=== PATIENT | female | born 1945 | race Caucasian/White ===

== ENCOUNTER 2019-05-01 09:16 | Day surgery (SDC) | payer MEDICARE, OTHER, SELFPAY ==
--- NOTE | 2019-04-30 16:45 | PM.PREOP ---
Pre-operative Note Interval Note History & Physical reviewed/Exam performed by Physician: Yes Changes to H&P: No
--- NOTE | 2019-05-01 08:11 | PM.OP.1 ---
Operative Date/Time/Diagnoses Date of procedure: 05/01/19 Time of procedure: 10:45 Procedure & Clinicians Procedure: Preoperative diagnoses: 1. Right advanced nuclear sclerotic and cortical cataract . Postoperative diagnoses: 1. Cataract removed by phacoemulsification. 2. Placement of a posterior chamber intraocular lens implant. Surgeon: Yue Argueta MD Complications: none Specimen: None Implant: [id number]+23.5 Blood loss: None Anesthesia: Retrobulbar with monitored standby. Description of procedure: Dictated by: Yue Argueta MD Post operative diagnoses: 1. Right cataract removed with use of capsular dye . 2. Placement of a posterior chamber intraocular lens. Procedure: Phacoemulsification with posterior chamber intraocular lens implant Surgeon: Yue Argueta MD Blood loss: None Anesthesia: Retrobulbar with monitored standby Description of procedure: Patient has presented with decreased vision due to cataract which is affecting activities of daily living. The patient wants surgery to improve vision. The patient was taken to the operating room and given IV sedation. A retrobulbar block consisting of 6 cc of 2% xylocaine without epinephrine mixed half and half with 0.5% Marcaine with 1 cc of hyaluronidase added is placed between the medial and lateral 1/3 of the inferior orbital rim. The eye is manually massaged for 30 sec, prepped using Betadine solution, and draped in the usual sterile fashion. Temporal approach was made, a 1 mm side-port incision was performed 90 degrees from the planned corneal wound. Phenylephrine 1.5% mixed with 1% xylocaine 0.2 cc was placed into the anterior chamber. Viscoat followed by Deyanira was then placed. A 2.6 mm clear incision with a 2.6 mm blade was placed. A 360 degree capsulorrhexis style capsulotomy was then performed with a cystitome needle on a Healon. Hydrodelineation and hydrodissection were performed. The phacoemulsification unit is introduced, and sculpting used to groove the central lens. It is then removed in chopping mode. Epi nucleus is removed with epinuclear mode and irrigation aspiration was used to remove the peripheral cortex. The posterior capsule is polished. The intraocular lens is selected, inspected, power confirmed, and placed in the posterior chamber. The pupil was constricted with Miostat. The wound was stromally hydrated and tested for leaks, there was none and was left sutureless. Vigamox 0.1 cc was placed into the anterior chamber. Kenalog 0.2 cc was placed in the superior subconjunctival space. A drop of antibiotic and was placed and the eye was patched and shielded. The patient was stable and returned to the recovery room in excellent condition. Dictated by: Yue Argueta MD Copy to: [facility] Same procedure as scheduled: Yes
[2019-05-01] MEDS: PROPARACAINE 0.5% OPHTH SOL 2 DROPS EYE-OP (10:05)
[2019-05-01] MEDS: CATARACT EYE COMPOUND (10 DROPS/SYRINGE) 3 DROPS EYE-OP (10:08)
[2019-05-01 10:13] VITALS: BP 172/79; PULSE 57; RESP 16; TEMP 37.2; O2SAT 99; BMI 26.5
--- NOTE | 2019-05-01 11:28 | SUR.OPER ---
Supine on eye stretcher, head on extension cradle secured with tape. Arms tucked at sides with blanket. Pillow under knees. Supine on eye stretcher, head on extension cradle secured with tape. Arms tucked at sides with blanket. Pillow under knees.
[2019-05-01] MEDS: CHONDROIDTIN/SOD HYALURONATE 1.05 ML SYRINGE INTRAOCULA (11:34)
[2019-05-01] MEDS: TRIAMCINOLONE 50 MG/5 ML VIAL INJ (11:35)
[2019-05-01] MEDS: HYALURONATE SODIUM 10 MG/ML SYRINGE INJ (11:35)
[2019-05-01] MEDS: PHENYLEPHRINE/LIDOCAINE VIAL (OR) 0.2 ML EYE-OP (11:36)
[2019-05-01] MEDS: MOXIFLOXACIN INJ 5 MG/ML VIAL EYE-OP (11:36)
[2019-05-01] MEDS: LIDOCAINE 2% 4 ML, BUPIVACAINE 0.5% (PF) 4 ML, HYALURONIDASE 150 UNIT INJ (11:37)
[2019-05-01] MEDS: BALANCED SALT IRRIG SOLN NO.2 500 ML, EPINEPHrine 1 MG IRR (11:38)
[2019-05-01] MEDS: ERYTHROMYCIN OPHTH 1 GM OINT 1 APPLIC EYE-RIGHT (11:45)
[2019-05-01 11:55] VITALS: BP 184/78; PULSE 64; RESP 16; TEMP 36.8; O2SAT 99
[2019-05-01 12:32] VITALS: BP 177/83; PULSE 61; RESP 15; TEMP 36.6; O2SAT 98
== END 2019-05-01 12:36 | disposition home or self-care (01) ==
LOC: OR 09:19
PROVIDERS: Family Provider Nurse Practitioner; Referring Provider Ophthalmology; Visit Provider Ophthalmology
PROC: (CPT 66984; principal; 2019-05-01 10:45)
DX: H25.811 Combined forms of age-related cataract, right eye (principal); H40.013 Open angle with borderline findings, low risk, bilateral; H35.363 Drusen (degenerative) of macula, bilateral
CPT/HCPCS: 66984; J0171; J2704; J3301; J3470